=== PATIENT | male | born 1980 ===

== ENCOUNTER 2021-07-08 18:30 | Emergency (ER) | payer BC ==
[2021-07-08] MEDS ORDERED: SODIUM CHLORIDE 0.9% 500 ML 500 ML IV ONE (18:52)
[2021-07-08] MEDS ORDERED: SODIUM CHLORIDE 0.9% 1,000 ML IV ONE (18:52)
[2021-07-08] MEDS ORDERED: ACETAMINOPHEN TAB 500 MG TAB PO STA (18:52)
[2021-07-08] MEDS ORDERED: IBUPROFEN 600 MG TAB PO STA (18:52)
--- NOTE | 2021-07-08 19:04 | ED ---
General Adult HPI - General Chief complaint: Upper Respiratory Infection Stated complaint: SOB,Cough,Fever Time Seen by Provider: 07/08/21 18:35 Source: patient, RN notes reviewed, old records reviewed Mode of arrival: ambulatory Limitations: no limitations - History of Present Illness Initial comments: This is a 41-year-old male who presents emergency department stating that he has had symptoms of a cough congestion and denies shortness of breath. Patient states symptoms started Sunday. Patient states he also feels as though he has a fever and has had some chills. Patient denies any chest pain or palpitations. Patient denies any abdominal pain patient denies any nausea or vomiting or diarrhea. Patient denies any swelling to the legs or calf tenderness. Patient states he did not get the COVID vaccine. - Related Data Allergies Allergy/AdvReac Type Severity Reaction Status Date / Time No Known Allergies Allergy Verified 07/08/21 18:39 Review of Systems ROS Statement: Those systems with pertinent positive or pertinent negative responses have been documented in the HPI. ROS Other: All systems not noted in ROS Statement are negative. Past Medical History Past Medical History: No Reported History History of Any Multi-Drug Resistant Organisms: None Reported Past Surgical History: No Surgical Hx Reported Past Psychological History: No Psychological Hx Reported Smoking Status: Never smoker Past Alcohol Use History: None Reported Past Drug Use History: None Reported General Exam - General Exam Comments Initial Comments: GENERAL: Patient is well-developed and well-nourished. Patient is nontoxic and well- hydrated and is in mild distress. ENT: Neck is soft and supple. No significant lymphadenopathy is noted. Oropharynx is clear. Moist mucous membranes. Neck has full range of motion without eliciting any pain. EYES: The sclera were anicteric and conjunctiva were pink and moist. Extraocular movements were intact and pupils were equal round and reactive to light. Eyelids were unremarkable. PULMONARY: Unlabored respirations. Good breath sounds bilaterally. No audible rales rhonchi or wheezing was noted. CARDIOVASCULAR: There is a regular rate and rhythm without any murmurs gallops or rubs. ABDOMEN: Soft and nontender with normal bowel sounds. SKIN: Skin is clear with no lesions or rashes and otherwise unremarkable. NEUROLOGIC: Patient is alert and oriented x3. Cranial nerves II through XII are grossly intact. Motor and sensory are also intact. Normal speech, volume and content. Symmetrical smile. MUSCULOSKELETAL: Normal extremities with adequate strength and full range of motion. LYMPHATICS: No significant lymphadenopathy is noted PSYCHIATRIC: Normal psychiatric evaluation. Limitations: no limitations Course Vital Signs 07/08/21 18:37 Temperature 102.9 F H Pulse Rate 97 Respiratory 22 Rate Blood Pressure 142/88 O2 Sat by Pulse 97 Oximetry Medical Decision Making - Medical Decision Making Patient's x-ray shows COVID pneumonia. Patient received Decadron. Patient received monoclonal antibodies. Patient was instructed to return if there is any difficulty breathing or shortness of breath. - Lab Data Lab Results 07/08/21 Range/Units 18:40 Coronavirus (PCR) Detected A (Not Detectd) Disposition Clinical Impression: Pneumonia due to COVID-19 virus Disposition: HOME SELF-CARE Condition: Good Instructions (If sedation given, give patient instructions): Coronavirus Disease 2019 (COVID-19) Additional Instructions: Patient returns as any difficulty breathing or shortness of breath. Is patient prescribed a controlled substance at d/c from ED?: No Referrals: None,Stated [Primary Care Provider] - 1-2 days Time of Disposition: 20:20
--- NOTE | 2021-07-08 19:45 | XR ---
EXAMINATION TYPE: XR chest 1V portable DATE OF EXAM: 07/08/2021 COMPARISON: NONE HISTORY: Short of breath TECHNIQUE: Single view FINDINGS: Heart is normal. There is slight increased pulmonary interstitial density. There is no hear t failure. There are no hilar masses. Costophrenic angles are clear. IMPRESSION: There is evidence for some minimal interstitial pneumonia.
[2021-07-08] MEDS ORDERED: CASIRIVIMAB (REGN10933) (EUA) 600 MG, IMDEVIMAB (REGN10987) (EUA) 600 MG in SODIUM CHLO... IVPB ONE (20:00)
[2021-07-08] MEDS ORDERED: dexAMETHasone 2 MG TAB PO STA (20:03)
[2021-07-08] MEDS ORDERED: SODIUM CHLORIDE 0.9% 50 ML IVPB ONE (20:30)
[2021-07-08 22:48] VITALS: BP 102/60; PULSE 88; RESP 16; TEMP 99.3
== END 2021-07-08 22:46 | disposition home or self-care (01) ==
LOC: EC 18:30
DX: U07.1 COVID-19 (principal); J12.82 Pneumonia due to coronavirus disease 2019
CPT/HCPCS: 99283; 96360; 87635; 71045; J8540; Q0244

== ENCOUNTER 2021-07-10 09:55 | Emergency (ER) | payer BC ==
[2021-07-10] MEDS ORDERED: SODIUM CHLORIDE 0.9% 500 ML 500 ML IV STA (11:35)
[2021-07-10] MEDS ORDERED: IBUPROFEN 600 MG TAB PO STA (11:38)
--- NOTE | 2021-07-10 11:41 | ED ---
General Adult HPI - General Chief complaint: Upper Respiratory Infection Stated complaint: Coughing Blood Time Seen by Provider: 07/10/21 11:10 Source: patient, RN notes reviewed, old records reviewed Mode of arrival: ambulatory Limitations: no limitations - History of Present Illness Initial comments: 41-year-old male, alert and oriented 4 and well appearing in no acute distress, presents to the emergency room with bloody sputum today. States he was diagnosed with coronavirus on July 08 and he received monoclonal antibodies. He was not vaccinated. He denies any chest pain or back pain at this time no dyspnea. He does present today with a fever. He does not take any medications on a daily basis, he is a nonsmoker. -: days(s) (1) Location: chest Radiation: non-radiation Severity scale (1-10): 0 Associated Symptoms: other (Hemoptysis) - Related Data Previous Rx's Medication Instructions Recorded Aspirin [Adult Low Dose Aspirin EC] 81 mg PO DAILY 60 Days #60 tab 07/10/21 Allergies Allergy/AdvReac Type Severity Reaction Status Date / Time No Known Allergies Allergy Verified 07/10/21 10:12 Review of Systems ROS Statement: Those systems with pertinent positive or pertinent negative responses have been documented in the HPI. ROS Other: All systems not noted in ROS Statement are negative. Past Medical History Past Medical History: No Reported History History of Any Multi-Drug Resistant Organisms: None Reported Past Surgical History: No Surgical Hx Reported Past Psychological History: No Psychological Hx Reported Smoking Status: Never smoker Past Alcohol Use History: None Reported Past Drug Use History: None Reported General Exam Limitations: no limitations General appearance: alert, in no apparent distress Head exam: Present: atraumatic, normocephalic, normal inspection Eye exam: Present: normal appearance, EOMI. Absent: scleral icterus, c onjunctival injection ENT exam: Present: normal exam, normal oropharynx, mucous membranes moist Neck exam: Present: normal inspection, full ROM. Absent: tenderness, meningismus, lymphadenopathy, thyromegaly Respiratory exam: Present: rales (Left lung base). Absent: respiratory distress, wheezes, rhonchi, chest wall tenderness, accessory muscle use, decreased breath sounds Cardiovascular Exam: Present: regular rate, normal heart sounds. Absent: JVD GI/Abdominal exam: Present: soft, normal bowel sounds. Absent: distended, tenderness, guarding, rebound, rigid Extremities exam: Present: full ROM, normal capillary refill. Absent: tenderness, pedal edema Back exam: Present: full ROM. Absent: tenderness, CVA tenderness (R), CVA tenderness (L) Neurological exam: Present: alert, oriented X3 Psychiatric exam: Present: normal affect, normal mood, anxious Skin exam: Present: warm, dry, intact, normal color. Absent: rash, cyanosis, diaphoretic Course Vital Signs 07/10/21 07/10/21 07/10/21 10:09 11:59 13:53 Temperature 101.2 F H 98.4 F Pulse Rate 84 72 Respiratory 20 20 16 Rate Blood Pressure 120/70 117/71 O2 Sat by Pulse 95 97 Oximetry Medical Decision Making - Medical Decision Making 41-year-old male, in no acute distress, presents with bloody sputum today. Diagnosed with coronavirus on July 08 and he received monoclonal antibodies. CT angiogram chest shows no central acute pulmonary embolism. There is bilateral multifocal groundglass opacities consistent with COVID-19. Hemoglobin and hematocrit are stable. Electrolytes are unremarkable. This is likely hemoptysis due to covid pneumonia. Temperature is down to 98.4, oxygen saturation is 97% on room air. He is no acute respiratory distress. Patient will be discharged home to follow up with his primary care doctor or return to the emergency room with any new or concerning symptoms. Case discussed with Dr. Trevino, patient will be prescribed 81 mg aspirin daily and follow up with his primary care doctor. - Lab Data Result diagrams: 07/10/21 11:59 07/10/21 11:59 Lab Results 07/10/21 07/10/21 07/10/21 Range/Units 11:59 11:59 11:59 WBC 4.1 (3.8-10.6) k/uL RBC 5.40 (4.30-5.90) m/uL Hgb 15.8 (13.0-17.5) gm/dL Hct 44.6 (39.0-53.0) % MCV 82.5 (80.0-100.0) fL MCH 29.3 (25.0-35.0) pg MCHC 35.5 (31.0-37.0) g/dL RDW 12.0 (11.5-15.5) % Plt Count 180 (150-450) k/uL MPV 7.9 Neutrophils % 74 % Lymphocytes % 19 % Monocytes % 5 % Eosinophils % 0 % Basophils % 1 % Neutrophils # 3.0 (1.3-7.7) k/uL Lymphocytes # 0.8 L (1.0-4.8) k/uL Monocytes # 0.2 (0-1.0) k/uL Eosinophils # 0.0 (0-0.7) k/uL Basophils # 0.0 (0-0.2) k/uL PT 9.7 (9.0-12.0) sec INR 0.9 (<1.2) APTT 23.8 (22.0-30.0) sec Sodium 135 L (137-145) mmol/L Potassium 4.3 (3.5-5.1) mmol/L Chloride 99 (98-107) mmol/L Carbon Dioxide 24 (22-30) mmol/L Anion Gap 12 mmol/L BUN 21 H (9-20) mg/dL Creatinine 0.87 (0.66-1.25) mg/dL Est GFR (CKD-EPI)AfAm >90 (>60 ml/min/1.73 sqM) Est GFR (CKD-EPI)NonAf >90 (>60 ml/min/1.73 sqM) Glucose 100 H (74-99) mg/dL Calcium 8.8 (8.4-10.2) mg/dL Total Bilirubin 1.1 (0.2-1.3) mg/dL AST 57 (17-59) U/L ALT 37 (4-49) U/L Alkaline Phosphatase 42 (38-126) U/L Total Protein 7.5 (6.3-8.2) g/dL Albumin 4.2 (3.5-5.0) g/dL Disposition Clinical Impression: Pneumonia due to COVID-19 virus Disposition: HOME SELF-CARE Condition: Good Instructions (If sedation given, give patient instructions): Coronavirus Disease 2019 (COVID-19) Additional Instructions: Take a baby aspirin a day. Follow-up with Dr. Wylie as recommended. Return to the emergency room with any new or worsening symptoms. Prescriptions: Aspirin [Adult Low Dose Aspirin EC] 81 mg PO DAILY 60 Days #60 tab Is patient prescribed a controlled substance at d/c from ED?: No Referrals: Ravi Wylie DO [Primary Care Provider] - 1-2 days Time of Disposition: 13:25
[2021-07-10 12:34] LABS: Basophils % (A) 1 %; Eosinophils % (A) 0 %; HCT 44.6 % (39.0-53.0); HGB 15.8 gm/dL (13.0-17.5); Lymphocytes # (A) 0.8 k/uL (1.0-4.8); Lymphocytes % (A) 19 %; MCH 29.3 pg (25.0-35.0); MCHC 35.5 g/dL (31.0-37.0); MCV 82.5 fL (80.0-100.0); Mean Platelet Volume 7.9; Monocytes # (A) 0.2 k/uL (0-1.0); Monocytes % (A) 5 %; Neutrophils % (A) 74 %; Platelet Count 180 k/uL (150-450); WBC 4.1 k/uL (3.8-10.6)
[2021-07-10 12:37] LABS: ALT 37 U/L (4-49); AST 57 U/L (17-59); African American GFR (CKD) >90 (>60 ml/min/1.73 sqM); Albumin 4.2 g/dL (3.5-5.0); Alkaline Phosphatase 42 U/L (38-126); Anion Gap 12 mmol/L; Blood Urea Nitrogen 21 mg/dL (9-20); Calcium 8.8 mg/dL (8.4-10.2); Carbon Dioxide 24 mmol/L (22-30); Chloride 99 mmol/L (98-107); Glucose 100 mg/dL (74-99); Non-African American GFR(CKD) >90 (>60 ml/min/1.73 sqM); Sodium 135 mmol/L (137-145); Total Bilirubin 1.1 mg/dL (0.2-1.3); Total Protein 7.5 g/dL (6.3-8.2)
[2021-07-10 12:39] LABS: INR 0.9 (<1.2); Partial Thromboplastin Time 23.8 sec (22.0-30.0); Prothrombin Time 9.7 sec (9.0-12.0)
[2021-07-10 12:43] LABS: Potassium 4.3 mmol/L (3.5-5.1)
--- NOTE | 2021-07-10 13:15 | CT ---
EXAMINATION TYPE: CT angio chest DATE OF EXAM: 07/10/2021 COMPARISON: Chest x-ray 2 days ago HISTORY: Hemoptysis, Covid+ CT DLP: 515.3 mGycm. Automated Exposure Control for Dose Reduction was Utilized. CONTRAST: CTA scan of the thorax is performed with IV Contrast, patient injected with 100 mL of Isovue 370, pul monary embolism protocol. MIP Images are created on CT scanner and reviewed. FINDINGS: LUNGS: Bilateral multifocal groundglass opacities are greatest in the lower lungs. No pleural effusio n or pneumothorax seen bilaterally. Respiratory motion artifact degradation noted limiting evaluation for subcentimeter nodules. MEDIASTINUM: There is near equal contrast and aorta and pulmonary arteries. Symmetric and remain in t he periphery with motion artifact. No thoracic aortic aneurysm or dissection. No central pulmonary em bolism. Cannot entirely exclude smaller peripheral pulmonary emboli. There are prominent right hilar lymph nodes. Heart size upper limits of normal. No pericardial effusion is seen. OTHER: Single calcification in the liver suspected axial image 120. IMPRESSION: 1. Suboptimal study without central acute pulmonary embolism. 2. Bilateral multifocal groundglass opacities greatest in the lower lungs consistent with covid-19 in fection.
[2021-07-10 13:54] VITALS: BP 117/71; PULSE 72; RESP 16; TEMP 98.4
== END 2021-07-10 14:10 | disposition home or self-care (01) ==
LOC: EC 09:55
DX: U07.1 COVID-19 (principal); J12.82 Pneumonia due to coronavirus disease 2019; Z79.82 Long term (current) use of aspirin
CPT/HCPCS: 99284; 36415; 80053; 85025; 85610; 85730; 71275; Q9967